=== PATIENT | female | born 1970 | race Caucasian/White ===

== ENCOUNTER → 2019-05-30 | Outpatient (CLI) | payer BC | LOC: GMAJ 11:28 | PROVIDERS: ATTEND Family Medicine | DX: D50.8 Other iron deficiency anemias (principal); R53.83 Other fatigue; Z79.899 Other long term (current) drug therapy ==

== ENCOUNTER → 2019-10-16 | Outpatient (CLI) | payer BC | LOC: GMAJ 17:18 | PROVIDERS: ATTEND Family Medicine | DX: D50.9 Iron deficiency anemia, unspecified (principal) ==

== ENCOUNTER → 2019-10-18 | Outpatient (CLI) | payer BC | LOC: GMAJ 14:20 | PROVIDERS: ATTEND Family Medicine | DX: Z79.899 Other long term (current) drug therapy (principal) ==

== ENCOUNTER → 2019-10-26 | Outpatient (CLI) | payer BC ==
--- NOTE | 2019-10-27 13:29 | MRI ---
EXAM DESCRIPTION: Cervical Spine CLINICAL HISTORY: CERVICAL ROOT DISORDERS COMPARISON: None. TECHNIQUE: Multiplanar MRI of the cervical spine was performed without contrast. FINDINGS: Cervical vertebral body heights are maintained. Straightening of the normal cervical lordosis. No marrow replacing process. Craniocervical junction is maintained. A normal basilar flow void is seen. Spinal cord shows normal MRI signal. Mild mucosal thickening of the right maxillary sinus is seen with moderate fluid signal mucous retention cyst in the posterior left maxillary sinus measuring at least 2.8 cm C1-2 and craniocervical junction Unremarkable C2-3 No significant findings. C3-4 No significant findings. C4-5 Desiccation of the disc space without disc space narrowing. Minimal 1 mm ventral ridging disc osteophyte complex narrows anterior subarachnoid space. No spinal canal stenosis or foraminal encroachment. C5-6 Disc desiccation and mild loss of disc space height. 2 to 3 mm broad-based ventral ridging disc osteophyte complex eccentric towards the left contacts the left ventral surface of the spinal cord. Mild spinal canal stenosis is seen with mild left foraminal encroachment. C6-7 Disc desiccation without loss of disc space height. Right paracentral more disc protrusion/extrusion than osteophytic ridging on gradient echo images measures 3.5 mm AP by 10 mm transverse at the base contacting and mildly contouring the right ventral surface of the spinal cord. Decreased CSF signal around the spinal cord. The cord measures 5.3 mm AP centrally compatible with moderate spinal canal stenosis. Disc material extends posterior to the C7 vertebral body measuring at least 7 mm craniocaudal. No foraminal encroachment. C7-T1 Tiny 1 to 2 mm central disc protrusion without significant spinal canal stenosis or foraminal encroachment. IMPRESSION: Ovyb-[id number]-[id number] disc disease of the cervical spine from C4 through T1 is seen. Complex disc protrusion/extrusion at C6-7 is seen contributing to moderate spinal canal stenosis and mild cord compression with disc material extending posterior to the C7 vertebral body. Nonspecific straightening of the normal cervical lordosis could be secondary to patient positioning or muscle spasm. Electronically signed by: Laz Marino MD 10/27/2019 1:27 PM CDT
--- NOTE | 2019-10-27 13:32 | MRI ---
EXAM DESCRIPTION: Lumbar Spine w/o Contrast CLINICAL HISTORY: SPINAL STENOSIS COMPARISON: X-rays October 16, 2019 TECHNIQUE: Multiplanar, multisequence MRI of the lumbar spine was performed without contrast. FINDINGS: Lumbar vertebral body heights are maintained. Straightening of the normal lumbar lordosis near horizontal positioning of the upper sacrum. No spondylolysis or spondylolisthesis. Conus medullaris terminates at T12-L1 and is unremarkable. Visualized intra-abdominal retroperitoneal structures show no acute findings. Incidentally noted retroaortic left renal vein. L1-2 No significant findings. L2-3 No significant findings. L3-4 No significant findings. L4-5 Disc desiccation and mild posterior disc space narrowing. No spinal canal stenosis or foraminal encroachment. L5-S1 Disc desiccation and mild diffuse disc space narrowing. 2 to 3 mm broad-based annular disc bulge more prominent in the inferior neural foramen left greater than right. Mild facet hypertrophy. No spinal canal stenosis. Moderate left greater than right foraminal encroachment. Modic type I degenerative endplate signal changes are seen level. Linear increased T2 signal annular tear centrally and towards the left. IMPRESSION: Oixo-pi-lzntpuio disc degenerative changes asymmetric towards the left at L5-S1 contributes to moderate left greater than right foraminal encroachment on the exiting L5 nerve roots. Electronically signed by: Laz Marino MD 10/27/2019 1:31 PM CDT
== END ==
LOC: MRI 09:32
PROVIDERS: ATTEND Family Medicine
DX: M50.33 Other cervical disc degeneration, cervicothoracic region (principal); M50.321 Other cervical disc degeneration at C4-C5 level; M50.322 Other cervical disc degeneration at C5-C6 level; M50.323 Other cervical disc degeneration at C6-C7 level; M50.223 Other cervical disc displacement at C6-C7 level; M48.02 Spinal stenosis, cervical region; M48.062 Spinal stenosis, lumbar region with neurogenic claudication; M51.37 Other intervertebral disc degeneration, lumbosacral region

== ENCOUNTER → 2019-12-17 | Outpatient (CLI) | payer BC | LOC: GMA CAST 14:46 | PROVIDERS: ATTEND Family Medicine Sports Medicine | DX: Z82.61 Family history of arthritis (principal) ==